=== PATIENT | male | born 1965 | race Two or more races ===

== ENCOUNTER 2022-03-29 07:50 | Inpatient (IN) | payer MEDICAID, OTHER ==
[~2022-03-29] VITALS: Ht 175.3 cm; Wt 62.3 kg
[2022-03-29] MEDS ORDERED: SODIUM CHLORIDE 0.9% 1,000 ML IV ONE ×2 (09:15)
[2022-03-29 09:40] LABS: Basophils # (auto) 0.1 10 ^3/uL (0-0.2); Basophils % (auto) 0.6 % (0.0-2.0); Eosinophils # (auto) 0 10 ^3/uL (0-0.8); Eosinophils % (auto) 0.1 % (0.0-7.0); Hematocrit 38.5 % (41.0-53.0); Hemoglobin 12.9 g/dL (13.5-17.5); Lymphocytes # (auto) 1.3 10 ^3/uL (0.4-5.4); Lymphocytes % (auto) 10.6 % (10.0-50.0); Mean Corpuscular Hemoglobin 32.4 pg (28.0-32.0); Mean Corpuscular Hgb Conc. 33.5 g/dL (32.0-36.0); Mean Corpuscular Volume 96.7 fL (80.0-100.0); Monocytes # (auto) 1.3 10 ^3/uL (0-1.3); Monocytes % (auto) 10.3 % (0.0-12.0); Neutrophils # (auto) 9.7 10 ^3/uL (1.6-8.6); Neutrophils % (auto) 78.4 % (37.0-80.0); Red Blood Cells 3.98 10^6/uL (4.5-5.90); Red Cell Distribution Width 14.1 % (11.8-14.3); White Blood Cell 12.4 10^3/uL (4.4-10.8)
[2022-03-29 09:59] LABS: INR 0.96 (0.9-1.15); Partial Thromboplastin Time 26.1 sec (24.6-33.4)
[2022-03-29 10:07] LABS: Potassium 4.8 mmol/L (3.5-5.1)
[2022-03-29 10:15] LABS: Albumin 3.6 g/dL (3.4-5.0); BUN/Creatinine Ratio 13.9; Bilirubin, Total 0.4 mg/dL (0.2-1.0); Calcium 8.9 mg/dL (8.5-10.1); Total Protein 7.3 g/dL (6.4-8.2)
[2022-03-29] MEDS ORDERED: ACETAMINOPHEN 325 MG TAB PO PRN (10:30)
[2022-03-29] MEDS ORDERED: PANTOPRAZOLE 40 MG/10 ML VIAL INJ IV ONE (10:30)
[2022-03-29] MEDS ORDERED: ETOMIDATE (2MG/ML) 20ML VIAL IV ONE ×2 (15:30→17:15)
[2022-03-29] MEDS ORDERED: MORPHINE SULFATE 4 MG/ML SYR/VIAL ONE (17:00)
[2022-03-29] MEDS ORDERED: ONDANSETRON HCL 4 MG/2 ML VIAL ONE (17:00)
[2022-03-29] MEDS: SODIUM CHLORIDE 0.9% 1,000 ML IV SCH (17:08)
[2022-03-29] MEDS ORDERED: ONDANSETRON HCL 4 MG/2 ML VIAL IV ONE (17:15)
[2022-03-29] MEDS ORDERED: MORPHINE SULFATE 4 MG/ML SYR/VIAL IV ONE (17:15)
[2022-03-29] MEDS: HYDROcodone-ACET 5/325MG TAB PO PRN ×2 (18:47→22:41)
[2022-03-29 22:00] VITALS: BP 154/91
[2022-03-29] MEDS ORDERED: HEPARIN SODIUM (PORCINE) 5000 UNITS/ML 1ML VIAL SC SCH (22:00)
[2022-03-30] MEDS: SODIUM CHLORIDE 0.9% 1,000 ML IV SCH ×2 (03:22→10:05)
[2022-03-30] MEDS: HYDROcodone-ACET 5/325MG TAB PO PRN ×5 (03:23→23:56)
[2022-03-30 05:00] VITALS: BP 153/88
[2022-03-30 06:24] LABS: Hematocrit 33.5 % (41.0-53.0); Hemoglobin 11.7 g/dL (13.5-17.5); Mean Corpuscular Hemoglobin 33.9 pg (28.0-32.0); Mean Corpuscular Hgb Conc. 35.1 g/dL (32.0-36.0); Mean Corpuscular Volume 96.7 fL (80.0-100.0); Red Blood Cells 3.46 10^6/uL (4.5-5.90); Red Cell Distribution Width 14.4 % (11.8-14.3); White Blood Cell 8.2 10^3/uL (4.4-10.8)
[2022-03-30 06:50] LABS: Basophils % (manual) 0 (0.0-2.0); Blast Cells 0; Eosinophils % (manual) 0 (0-7); Metamyelocytes % 0; Myelocytes % 0; Promyelocytes % 0; Reactive Lymphocytes 0
[2022-03-30 07:53] LABS: Band Neutrophils % (manual) 2; Lymphocytes % (manual) 18 (10.0-50.0); Monocytes % (manual) 20 (0-12)
[2022-03-30 08:56] VITALS: BP 144/79
[2022-03-30] MEDS: PANTOPRAZOLE 40 MG/10 ML VIAL INJ IV SCH (09:59)
[2022-03-30 10:47] LABS: Urine Amorphous Crystal FEW /hpf (None Seen); Urine Bacteria NONE SEEN /hpf (None Seen); Urine Blood Negative /uL (Negative); Urine Specific Gravity 1.017 (1.001-1.035); Urine WBC 1 /hpf (0 - 3)
[2022-03-30 13:00] VITALS: BP 149/94
[2022-03-30 16:47] VITALS: BP 183/99
[2022-03-30] MEDS: hydrALAZINE HCL 20 MG/ML VL IV PRN (17:38)
[2022-03-30] MEDS ORDERED: cloNIDine HCL 0.1 MG TAB PO PRN (18:45)
[2022-03-30 22:00] VITALS: BP 147/90
[2022-03-31] MEDS: SODIUM CHLORIDE 0.9% 1,000 ML IV SCH ×2 (01:21→15:50)
[2022-03-31] MEDS: HYDROcodone-ACET 5/325MG TAB PO PRN ×2 (04:34→09:21)
[2022-03-31 05:00] VITALS: BP 158/94
[2022-03-31] MEDS ORDERED: EPINEPHrine HCL 1 MG/1 ML AMP ONE (08:21)
[2022-03-31 09:00] VITALS: BP 150/90
[2022-03-31] MEDS: PANTOPRAZOLE 40 MG/10 ML VIAL INJ IV SCH (09:21)
[2022-03-31] MEDS ORDERED: MIDAZOLAM HCL 2MG/2ML 2ml VIAL (1mg/ml) ONE (11:16)
[2022-03-31] MEDS ORDERED: ceFAZolin 1GM/50ML 100 ML IV ONE ×2 (11:41→22:29)
[2022-03-31] MEDS ORDERED: SODIUM CHLORIDE LOCK 10 ML ONE ×2 (12:20→12:33)
[2022-03-31] MEDS ORDERED: PHENYLEPHRINE HCL 10 MG/ML VL ONE (12:20)
[2022-03-31] MEDS ORDERED: DexAMETHasone SOD PHOS 10MG/1ML VIAL INJ ONE (12:37)
[2022-03-31] MEDS ORDERED: PROPOFOL 10 MG/ML 20 ML IV ONE (12:45)
[2022-03-31] MEDS ORDERED: HYDROmorphone HCL 2 MG/ML VL/or syr IV PRN (14:15)
[2022-03-31] MEDS: D5W/LACTATED RINGERS 1,000 ML IV SCH (14:15)
[2022-03-31] MEDS ORDERED: ACETAMINOPHEN 325 MG TAB PO PRN (14:15)
[2022-03-31 16:47] VITALS: BP 148/80
[2022-03-31 22:00] VITALS: BP 158/105
[2022-03-31] MEDS: SODIUM CHLOR 0.9% PF (SALINE LOCK) 10ML VIAL/SYR IV SCH (22:00)
[2022-03-31] MEDS: ceFAZolin 2 GM in D5W 5% 100 ML IV SCH (22:33)
[2022-03-31] MEDS: HYDROcodone-ACET 10/325MG TAB PO PRN (22:45)
[2022-04-01] MEDS: D5W/LACTATED RINGERS 1,000 ML IV SCH ×2 (00:15→10:15)
[2022-04-01] MEDS: HYDROcodone-ACET 10/325MG TAB PO PRN ×2 (03:10→14:50)
[2022-04-01 05:00] VITALS: BP 159/100
[2022-04-01] MEDS: SODIUM CHLORIDE 0.9% 1,000 ML IV SCH ×2 (05:10→18:30)
[2022-04-01] MEDS ORDERED: ceFAZolin 1GM/50ML 100 ML IV ONE (05:45)
[2022-04-01] MEDS: hydrALAZINE HCL 20 MG/ML VL IV PRN ×2 (05:50→15:01)
[2022-04-01] MEDS: ceFAZolin 2 GM in D5W 5% 100 ML IV SCH (05:58)
[2022-04-01] MEDS: SODIUM CHLOR 0.9% PF (SALINE LOCK) 10ML VIAL/SYR IV SCH ×2 (05:59→14:22)
[2022-04-01 08:37] VITALS: BP 153/88
[2022-04-01] MEDS: PANTOPRAZOLE 40 MG/10 ML VIAL INJ IV SCH (09:02)
[2022-04-01] MEDS ORDERED: ENOXAPARIN SOD 40 MG/0.4 ML SYRINGE SC SCH (10:00)
[2022-04-01 12:30] VITALS: BP 155/74
[2022-04-01] MEDS ORDERED: HYDR-4902 PO (14:36)
[2022-04-01 15:50] VITALS: BP 155/74
== END 2022-04-01 16:00 | disposition home or self-care (01) | DRG 308 ==
LOC: ER 07:50 → EDBD 07:50 → OVERFLOW 10:28 → WEST WING 17:59
PROVIDERS: ADMIT Nurse Practitioner Family; ATTEND Internal Medicine
PROC: 0QSC04Z Reposition Left Lower Femur with Internal Fixation Device, Open Approach (ICD-10-PCS; principal; 2022-03-31 12:01)
DX: S72.452A Displaced supracondylar fracture without intracondylar extension of lower end of left femur, initial encounter for closed fracture (principal); F17.210 Nicotine dependence, cigarettes, uncomplicated; M81.0 Age-related osteoporosis without current pathological fracture; Z20.822 Contact with and (suspected) exposure to COVID-19; W18.39XA Other fall on same level, initial encounter; Z88.8 Allergy status to other drugs, medicaments and biological substances; Y92.89 Other specified places as the place of occurrence of the external cause; Y99.8 Other external cause status; Y93.55 Activity, bike riding
CPT/HCPCS: 36415; 71045; 73562; 73700; 80053; 81001; 84484; 85007; 85025; 85027; 85610; 85730; 86850; 86900; 86901; 87040; 87426; 93005; 96361; 96374; 96375; C9113; G0378; J0171; J0690; J1100; J2250; J2405; J2704; J7060

== ENCOUNTER 2023-10-23 21:42 | Inpatient (IN) | payer MEDICAID ==
[~2023-10-23] VITALS: Ht 175.3 cm; Wt 63.4 kg
[~2023-10-23 21:42] MED LIST: HYDR-4902 PO
[2023-10-24] VITALS (7 sets, daily range): BP systolic 151–161; BP diastolic 55–106; PULSE 58–110; RESP 14–18; TEMP 98–98.9; O2SAT 94–97
[2023-10-24] MEDS: SODIUM CHLORIDE 0.9% 1,000 ML IV ONE (03:40)
[2023-10-24] MEDS: cefTRIAXone 1GM/50ML D5W 50 ML IV ONE (03:40)
[2023-10-24 04:01] LABS: INR 0.97 (0.9-1.15); Partial Thromboplastin Time 26.5 SEC (24.5-34.5); Prothrombin Time 10.3 sec (9.3-11.8)
[2023-10-24 04:54] LABS: Alanine Aminotransferase 24 U/L (7-40); Alkaline Phosphatase 76 U/L (46-116); Anion Gap 3 (5-15); Aspartate Aminotransferase 25 U/L (13-40); BUN/Creatinine Ratio 10.1 (10.0-20.0); Blood Urea Nitrogen 7 mg/dL (9-23); Calcium 8.6 mg/dL (8.7-10.4); Carbon Dioxide 25 mmol/L (20-30); Chloride 101 mmol/L (98-107); Glucose 88 mg/dL (74-106); Potassium 3.5 mmol/L (3.5-5.1); Sodium 129 mmol/L (136-145)
[2023-10-24 04:55] LABS: Bilirubin, Total 0.4 mg/dL (0.2-1.0); Total Protein 7.1 g/dL (5.7-8.2)
[2023-10-24] MEDS: KETOROLAC TROMETH 30 MG/ML 1ML VIAL IV ONE (05:10)
[2023-10-24] MEDS ORDERED: ONDANSETRON HCL 4 MG/2 ML VIAL IV PRN (06:00)
[2023-10-24 06:55] LABS: Hemoglobin 13.8 g/dL (13.5-17.5)
[2023-10-24 06:57] LABS: Hematocrit 39.6 % (41.0-53.0); Mean Corpuscular Hemoglobin 35.4 pg (28.0-32.0); Mean Corpuscular Hgb Conc. 34.9 g/dL (32.0-36.0); Mean Corpuscular Volume 101.4 fL (80.0-100.0); Platelet Count (auto) 356 10^3/uL (140-450); Red Cell Distribution Width 13.4 % (11.8-14.3); White Blood Cell 17.2 10^3/uL (4.4-10.8)
[2023-10-24 07:01] LABS: Basophils % (manual) 0 (0.0-2.0); Blast Cells 0; Metamyelocytes % 0; Myelocytes % 0; Promyelocytes % 0; Reactive Lymphocytes 0
[2023-10-24] MEDS: fentaNYL CITRATE 100 MCG/2 ML VL IV ONE (08:26)
[2023-10-24 08:27] LABS: Urine Bacteria None Seen /hpf (None Seen)
[2023-10-24 08:31] LABS: Urine Blood Negative /uL (Negative); Urine Clarity Clear (Clear); Urine Color Colorless (Yellow); Urine Protein, UAD Negative (Negative); Urine Specific Gravity 1.006 (1.001-1.035); Urine Urobilinogen Normal (Negative); Urine WBC <1 /hpf (0 - 3); Urine pH 6.5 (5.0-9.0)
[2023-10-24 08:44] LABS: Amphetamine Screen, Urine Neg (NEGATIVE); Barbiturate Scree,Urine Neg (NEGATIVE); Benzodiazephine Screen, Urine Neg (NEGATIVE); Cannabinoid Screen, Urine Neg (NEGATIVE); Cocaine Screen, Urine Neg (NEGATIVE); Opiate Scree,Urine Neg (NEGATIVE); Phencyclidine Screen, Urine Neg (NEGATIVE)
[2023-10-24 11:53] LABS: Band Neutrophils % (manual) 8; Eosinophils % (manual) 2 (0-7); Lymphocytes % (manual) 11 (10.0-50.0); Monocytes % (manual) 9 (0-12); Platelet Estimate Adequate
[2023-10-24] MEDS ORDERED: LORazepam 2MG/ML-1ML VIAL IV PRN (12:00)
[2023-10-24] MEDS: LACTATED RINGER'S 1,000 ML IV SCH (12:00)
[2023-10-24] MEDS: FOLIC ACID 1 MG TAB PO ONE (13:16)
[2023-10-24] MEDS: hydrALAZINE HCL 20 MG/ML VL IV PRN (13:17)
[2023-10-24] MEDS: THIAMINE HCL 100 MG TAB PO ONE (13:17)
[2023-10-24] MEDS: ENOXAPARIN SOD 40 MG/0.4 ML SYRINGE SC ONE (13:19)
[2023-10-24] MEDS: MORPHINE SULFATE INJ 2 MG/ml SYRG IV PRN (14:38)
[2023-10-24] MEDS: NICOTINE 21MG/24 HR TOPICAL PATCH TD ONE (15:45)
[2023-10-25] VITALS (7 sets, daily range): BP systolic 142–168; BP diastolic 84–98; PULSE 100–114; RESP 16–18; TEMP 97.9–98.9; O2SAT 93–100
[2023-10-25 06:00] LABS: Hemoglobin 14.4 g/dL (13.5-17.5)
[2023-10-25 06:07] LABS: Hematocrit 41.1 % (41.0-53.0); Mean Corpuscular Hemoglobin 35.6 pg (28.0-32.0); Mean Corpuscular Volume 101.9 fL (80.0-100.0); Platelet Count (auto) 341 10^3/uL (140-450); Red Blood Cells 4.03 10^6/uL (4.5-5.90); Red Cell Distribution Width 13.1 % (11.8-14.3); White Blood Cell 19.1 10^3/uL (4.4-10.8)
[2023-10-25 06:19] LABS: Alanine Aminotransferase 19 U/L (7-40); Albumin 4.2 g/dL (3.2-4.8); Alkaline Phosphatase 82 U/L (46-116); Anion Gap 4 (5-15); Aspartate Aminotransferase 22 U/L (13-40); BUN/Creatinine Ratio 13.3 (10.0-20.0); Blood Urea Nitrogen 8 mg/dL (9-23); Calcium 9.3 mg/dL (8.7-10.4); Carbon Dioxide 24 mmol/L (20-30); Chloride 100 mmol/L (98-107); Glucose 112 mg/dL (74-106); Magnesium 1.7 mg/dL (1.6-2.6); Potassium 3.6 mmol/L (3.5-5.1); Sodium 128 mmol/L (136-145)
[2023-10-25 06:20] LABS: Band Neutrophils % (manual) 0; Basophils % (manual) 0 (0.0-2.0); Bilirubin, Total 0.8 mg/dL (0.2-1.0); Blast Cells 0; Eosinophils % (manual) 0 (0-7); Metamyelocytes % 0; Myelocytes % 0; Promyelocytes % 0; Reactive Lymphocytes 0; Total Protein 7.4 g/dL (5.7-8.2)
[2023-10-25] MEDS: hydrALAZINE HCL 20 MG/ML VL IV ONE (06:42)
[2023-10-25] MEDS: THIAMINE HCL 100 MG TAB PO SCH (09:21)
[2023-10-25] MEDS: FOLIC ACID 1 MG TAB PO SCH (09:21)
[2023-10-25] MEDS: NICOTINE 21MG/24 HR TOPICAL PATCH TD SCH (09:21)
[2023-10-25] MEDS: ENOXAPARIN SOD 40 MG/0.4 ML SYRINGE SC SCH (09:21)
[2023-10-25 10:01] LABS: Lymphocytes % (manual) 11 (10.0-50.0); Monocytes % (manual) 15 (0-12); Platelet Estimate Adequate
[2023-10-25] MEDS: BUPIVACAINE 0.25% INJ 50ML VIAL ONE (11:07)
[2023-10-25] MEDS: DexAMETHasone SOD PHOS 4 MG/1ML SDV INJ ONE (12:58)
[2023-10-25] MEDS: EPINEPHrine HCL 1 MG/1 ML AMP ONE (12:58)
[2023-10-25] MEDS ORDERED: KETOROLAC TROMETH 30 MG/ML 1ML VIAL ONE (13:03)
[2023-10-25] MEDS ORDERED: LIDOCAINE HCL 2% TOP JELLY 5ML TOP ONE (13:03)
[2023-10-25] MEDS ORDERED: DexAMETHasone SOD PHOS 10MG/1ML VIAL INJ ONE (13:03)
[2023-10-25] MEDS ORDERED: PROPOFOL 10 MG/ML 20 ML IV ONE (13:03)
[2023-10-25] MEDS ORDERED: LIDOCAINE 2% (LOCAL ANESTH.) PF 5ml SDV ONE (13:03)
[2023-10-25] MEDS ORDERED: GLYCOPYRROLATE 0.2 MG/ML 1ML VIAL ONE (13:03)
[2023-10-25] MEDS ORDERED: ONDANSETRON HCL 4 MG/2 ML VIAL ONE (13:03)
[2023-10-25] MEDS ORDERED: LIDOCAINE 1% INJ PF 5ML AMP ONE (13:03)
[2023-10-25] MEDS ORDERED: fentaNYL CITRATE 100 MCG/2 ML VL ONE (13:05)
[2023-10-25] MEDS: CELECOXIB 100 MG CAP PO ONE (13:50)
[2023-10-25] MEDS: ACETAMINOPHEN IV 1000 MG/100ML (10MG/ML) IV ONE (13:50)
[2023-10-25] MEDS: GABAPENTIN 400 MG CAP PO ONE (13:50)
[2023-10-25] MEDS: ceFAZolin 2 GM/D5W100ml 100 ML IV ONE (13:54)
[2023-10-25] MEDS ORDERED: ESMOLOL HCL 10 ML IV ONE (14:25)
[2023-10-25] MEDS: BUPIVACAINE 0.25% INJ 50ML VIAL IJ ONE (15:20)
[2023-10-25] MEDS ORDERED: HYDROmorphone HCL 2 MG/ML VL/or syr IV PRN (15:45)
[2023-10-25] MEDS ORDERED: oxyCODONE HCL 5MG TAB PO PRN (15:45)
[2023-10-25] MEDS ORDERED: fentaNYL CITRATE 100 MCG/2 ML VL IV PRN (15:45)
[2023-10-25] MEDS ORDERED: FLUMAZENIL 0.1 MG/ML INJ 10ML MDV IV PRN (15:45)
[2023-10-25] MEDS ORDERED: ePHEDrine SULFATE 50 MG/ML AMP IV PRN (15:45)
[2023-10-25] MEDS ORDERED: NALOXONE HCL 0.4 MG/ML VIAL IV PRN (15:45)
[2023-10-25] MEDS ORDERED: ONDANSETRON HCL 4 MG/2 ML VIAL IV PRN (15:45)
[2023-10-25] MEDS ORDERED: hydrALAZINE HCL 20 MG/ML VL IV PRN (15:45)
[2023-10-26] VITALS (7 sets, daily range): BP systolic 147–161; BP diastolic 80–90; PULSE 85–111; RESP 14–18; TEMP 98.4–98.8; O2SAT 94–99
[2023-10-26] MEDS ORDERED: NICOTINE 21MG/24 HR TOPICAL PATCH TD ONE (11:00)
[2023-10-27 01:00] VITALS: BP 161/90; PULSE 102; RESP 19; TEMP 98.2; O2SAT 97
[2023-10-27 05:00] VITALS: BP 161/90; PULSE 100; RESP 18; TEMP 98.5; O2SAT 98
[2023-10-27 06:18] LABS: Hematocrit 35.8 % (41.0-53.0); Hemoglobin 12.5 g/dL (13.5-17.5); Mean Corpuscular Hemoglobin 35.9 pg (28.0-32.0); Mean Corpuscular Hgb Conc. 34.9 g/dL (32.0-36.0); Mean Corpuscular Volume 102.7 fL (80.0-100.0); Platelet Count (auto) 298 10^3/uL (140-450); Red Blood Cells 3.48 10^6/uL (4.5-5.90); Red Cell Distribution Width 13.6 % (11.8-14.3); White Blood Cell 18.7 10^3/uL (4.4-10.8)
[2023-10-27 06:23] LABS: Band Neutrophils % (manual) 0; Basophils % (manual) 0 (0.0-2.0); Blast Cells 0; Eosinophils % (manual) 0 (0-7); Metamyelocytes % 0; Myelocytes % 0; Promyelocytes % 0; Reactive Lymphocytes 0
[2023-10-27 06:25] LABS: Chloride 103 mmol/L (98-107); Potassium 4.9 mmol/L (3.5-5.1); Sodium 132 mmol/L (136-145)
[2023-10-27 06:26] LABS: Anion Gap 2 (5-15); Calcium 9.2 mg/dL (8.7-10.4); Carbon Dioxide 27 mmol/L (20-30)
[2023-10-27 06:32] LABS: BUN/Creatinine Ratio 17.5 (10.0-20.0); Blood Urea Nitrogen 14 mg/dL (9-23); Glucose 97 mg/dL (74-106)
[2023-10-27 06:56] LABS: Lymphocytes % (manual) 15 (10.0-50.0); Monocytes % (manual) 18 (0-12); Platelet Estimate Adequate
[2023-10-27 06:57] LABS: Macrocytosis Slight
[2023-10-27 08:30] VITALS: BP 142/87; PULSE 96; RESP 20; TEMP 98.2; O2SAT 97
[2023-10-27] MEDS: ACETAMINOPHEN 325 MG TAB PO PRN (10:09)
[2023-10-27] MEDS: NICOTINE 21MG/24 HR TOPICAL PATCH TD SCH (10:10)
[2023-10-27 21:00] VITALS: BP 192/106; PULSE 130; RESP 18; TEMP 98.7; O2SAT 97
[2023-10-28] VITALS (7 sets, daily range): BP systolic 123–162; BP diastolic 86–104; PULSE 94–115; RESP 16–19; TEMP 98.5–99.1; O2SAT 95–96
[2023-10-28] MEDS: chlordiazePOXIDE HCL 5 MG CAP PO PRN (00:20)
[2023-10-29] VITALS (8 sets, daily range): BP systolic 127–161; BP diastolic 78–98; PULSE 88–99; RESP 15–18; TEMP 98.2–99.4; O2SAT 95–96
[2023-10-29 10:27] LABS: Basophils # (auto) 0.1 10 ^3/uL (0-0.2); Basophils % (auto) 0.6 % (0.0-2.0); Eosinophils # (auto) 0.2 10 ^3/uL (0-0.8); Eosinophils % (auto) 0.9 % (0.0-7.0); Hematocrit 35.3 % (41.0-53.0); Lymphocytes # (auto) 1.9 10 ^3/uL (0.4-5.4); Lymphocytes % (auto) 10.7 % (10.0-50.0); Mean Corpuscular Hemoglobin 34.8 pg (28.0-32.0); Mean Corpuscular Volume 102.4 fL (80.0-100.0); Monocytes # (auto) 3.2 10 ^3/uL (0-1.3); Monocytes % (auto) 17.8 % (0.0-12.0); Neutrophils # (auto) 12.7 10 ^3/uL (1.6-8.6); Nucleated Red Blood Cells % 0.1 %; Platelet Count (auto) 371 10^3/uL (140-450); Red Blood Cells 3.45 10^6/uL (4.5-5.90); Red Cell Distribution Width 13.2 % (11.8-14.3); White Blood Cell 18.1 10^3/uL (4.4-10.8)
[2023-10-29 10:30] LABS: Anion Gap 5 (5-15); Carbon Dioxide 29 mmol/L (20-30); Chloride 97 mmol/L (98-107); Potassium 4.9 mmol/L (3.5-5.1); Sodium 131 mmol/L (136-145)
[2023-10-29 10:31] LABS: Calcium 9.8 mg/dL (8.7-10.4)
[2023-10-29 10:36] LABS: BUN/Creatinine Ratio 21.1 (10.0-20.0); Blood Urea Nitrogen 16 mg/dL (9-23); Glucose 106 mg/dL (74-106)
[2023-10-29] MEDS: LISINOPRIL 5 MG TAB PO SCH (11:01)
[2023-10-29] MEDS: LISINOPRIL 5 MG TAB PO ONE (14:30)
[2023-10-30] VITALS (8 sets, daily range): BP systolic 129–155; BP diastolic 79–94; PULSE 94–111; RESP 16–18; TEMP 98.1–98.7; O2SAT 94–98
[2023-10-30 06:06] LABS: Hematocrit 35.2 % (41.0-53.0); White Blood Cell 16.5 10^3/uL (4.4-10.8)
[2023-10-30 06:08] LABS: Hemoglobin 12.3 g/dL (13.5-17.5); Mean Corpuscular Hemoglobin 35.5 pg (28.0-32.0); Mean Corpuscular Hgb Conc. 35.1 g/dL (32.0-36.0); Mean Corpuscular Volume 101.1 fL (80.0-100.0); Platelet Count (auto) 384 10^3/uL (140-450); Red Blood Cells 3.48 10^6/uL (4.5-5.90); Red Cell Distribution Width 13.2 % (11.8-14.3)
[2023-10-30 06:33] LABS: Alanine Aminotransferase 18 U/L (7-40); Albumin 4.1 g/dL (3.2-4.8); Alkaline Phosphatase 72 U/L (46-116); Anion Gap 5 (5-15); Aspartate Aminotransferase 29 U/L (13-40); BUN/Creatinine Ratio 19.7 (10.0-20.0); Blood Urea Nitrogen 14 mg/dL (9-23); Calcium 9.4 mg/dL (8.7-10.4); Carbon Dioxide 26 mmol/L (20-30); Chloride 98 mmol/L (98-107); Glucose 94 mg/dL (74-106); Potassium 4.3 mmol/L (3.5-5.1); Sodium 129 mmol/L (136-145)
[2023-10-30 06:34] LABS: Bilirubin, Total 0.5 mg/dL (0.2-1.0); Total Protein 7.5 g/dL (5.7-8.2)
[2023-10-30 07:05] LABS: Band Neutrophils % (manual) 0; Basophils % (manual) 0 (0.0-2.0); Blast Cells 0; Metamyelocytes % 0; Myelocytes % 0; Promyelocytes % 0; Reactive Lymphocytes 0
[2023-10-30 08:52] LABS: Eosinophils % (manual) 2 (0-7); Lymphocytes % (manual) 18 (10.0-50.0); Macrocytosis Slight; Monocytes % (manual) 18 (0-12); Platelet Estimate Adequate
[2023-10-30] MEDS: LISINOPRIL 5 MG TAB PO SCH (11:42)
[2023-10-30] MEDS ORDERED: LISI20TA56 PO (12:36)
[2023-10-31 01:00] VITALS: BP 133/77; PULSE 89; RESP 18; TEMP 98.6; O2SAT 96
[2023-10-31 05:00] VITALS: BP 137/76; PULSE 76; RESP 18; TEMP 97.5; O2SAT 97
[2023-10-31 09:00] VITALS: BP 129/81; PULSE 91; RESP 18; TEMP 98.9; O2SAT 95
[2023-10-31] MEDS: HYDROcodone-ACET 5/325MG TAB PO PRN (09:13)
[2023-10-31 12:45] VITALS: BP 119/75; PULSE 91; RESP 22; TEMP 99.1; O2SAT 98
[2023-10-31 17:00] VITALS: BP 146/84; PULSE 90; RESP 96; TEMP 98.6; O2SAT 98
[2023-10-31 22:00] VITALS: BP 154/87; PULSE 81; RESP 17; TEMP 97.4; O2SAT 98
[2023-11-01 01:00] VITALS: BP 143/78; PULSE 84; RESP 19; TEMP 97.1; O2SAT 99
[2023-11-01 05:00] VITALS: BP 114/75; PULSE 73; RESP 17; TEMP 97.2; O2SAT 98
[2023-11-01 08:50] VITALS: BP 135/83; PULSE 89; RESP 18; TEMP 98; O2SAT 98
[2023-11-01 12:50] VITALS: BP 130/83; PULSE 81; RESP 18; TEMP 99.1; O2SAT 97
[2023-11-01 14:00] VITALS: BP 130/83; PULSE 81; RESP 18; TEMP 99.1; O2SAT 97
[2023-11-01 14:38] VITALS: TEMP 98.4
== END 2023-11-01 15:00 | DRG 308 ==
LOC: ER 21:42 → EDUNIT# 21:42 → EDBD 21:42 → OVERFLOW 10-24 06:00 → WEST WING 10-24 08:43
PROVIDERS: ADMIT Nurse Practitioner; ATTEND Internal Medicine Geriatric Medicine
PROC: 0QS704Z Reposition Left Upper Femur with Internal Fixation Device, Open Approach (ICD-10-PCS; principal; 2023-10-25 14:05)
DX: S72.142A Displaced intertrochanteric fracture of left femur, initial encounter for closed fracture (principal); E87.1 Hypo-osmolality and hyponatremia; R65.10 Systemic inflammatory response syndrome (SIRS) of non-infectious origin without acute organ dysfunction; F10.229 Alcohol dependence with intoxication, unspecified; I10 Essential (primary) hypertension; F17.210 Nicotine dependence, cigarettes, uncomplicated; M81.0 Age-related osteoporosis without current pathological fracture; Z59.00 Homelessness unspecified; Z79.899 Other long term (current) drug therapy; W18.39XA Other fall on same level, initial encounter; Y93.89 Activity, other specified; Y92.89 Other specified places as the place of occurrence of the external cause; Y99.8 Other external cause status; Y90.3 Blood alcohol level of 60-79 mg/100 ml
CPT/HCPCS: 36415; 71045; 73502; 76000; 80048; 80053; 80307; 80320; 81001; 83735; 83880; 84484; 85007; 85025; 85027; 85610; 85730; 86850; 86900; 86901; 93005; 93306; 97110; 97116; 97163; 97530; G0378; J0131; J0171; J1100; J1885; J2001; J2405; J2704; J3490